=== PATIENT | female | born 1950 | race Caucasian/White ===

== ENCOUNTER 2016-06-03 12:16 | Outpatient (CLI) | payer OTHER ==
[2013-12-13 11:07] VITALS: BP 114/49
[2016-06-03 12:37] LABS: BASOPHILS % 0.8 (0.0-1.5); EOSINOPHILS % 1.8 % (0.0-6.8); MEAN CORPUSCULAR HEMOGLOBIN 31.6 pg (28.0-34.0); MEAN CORPUSCULAR VOLUME 96.9 fl (80.0-100.0); MONOCYTES % 4.7 % (0.0-11.0); NEUTROPHILS # 3.7 # k/uL (1.4-7.7)
[2016-06-03 13:12] LABS: eGFR (African) > 60; eGFR (Non-African) > 60
[2016-06-03 23:20] LABS: IRON SERUM 122 ug/dL (37-145); VITAMIN D, 25-HYDROXY 47 ng/mL (30-100)
== END 2016-06-03 12:17 ==
LOC: LAB 12:16
PROVIDERS: ATTEND Physician Assistant
DX: R53.83 Other fatigue (principal)
CPT/HCPCS: 36415; 80053; 82306; 82607; 83540; 84439; 84443; 84481; 85025

== ENCOUNTER 2016-06-05 10:37 | Outpatient (CLI) | payer OTHER ==
[2013-12-13 11:07] VITALS: BP 114/49
== END 2016-06-05 10:40 ==
LOC: LAB 10:37
PROVIDERS: ATTEND Family Medicine
DX: R73.9 Hyperglycemia, unspecified (principal)
CPT/HCPCS: 36415; 83036

== ENCOUNTER 2016-07-03 14:35 | Outpatient (CLI) | payer OTHER ==
[2013-12-13 11:07] VITALS: BP 114/49
--- NOTE | 2016-07-04 14:44 | OP Clinic Progress Note ---
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 Recently , she had this happen. She felt this more recent episode a month or so ago was "really bad." She felt like her head was blocked up and almost wanting to explode. She has had reduced hearing in the right ear. There is more pressure in the right ear. She used some antihistamines and decongestants and topical Flonase nasal spray. With time and/or with the medications, she is at least moderately improved. Appropriately, wax was noted in the left ear on her examination with Dr. Stewart. Under the microscope, I debrided and cleaned a tiny amount of wax from the right ear and a moderately significant amount from the left ear. I could see both eardrums very well. Neither ear has fluid behind the eardrum. The high arched ear canal somewhat blocks off the anterior aspect of the right ear examination. The right eardrum is somewhat stiffened and retracted at the malleus. Clearly, overall, Nandini Gardner also has a very long narrow face and a high- arched palate. Frequently, these are associated with at least mild degrees of Eustachian tube dysfunctions and are felt to be somewhat elongated and narrow. PLAN: I offered several different treatment options including taking a short course of taking steroids and of course taking some antibiotics, doing a small myringotomy, or placing a tube. All these options were not agreeable with Nadnini. She has felt like she is improving in some degree and does not want to take medications or do anything physical regarding this issue. Diagrams were used to go over these issues and I think she has a better understanding of them. She wanted to know about cerumen but I do not think I would really recommend anything for her right now. It has never been a problem before in her life and if it resurfaces again after several decades, I think she simply ought to have it cleaned it. She may return on a p.r.n. basis if the symptoms get to a level of being bothersome enough that she would like to do something about them. cc: Dr. Charity ALTMAN
== END 2016-07-03 14:36 ==
LOC: ENT 14:35
PROVIDERS: ATTEND Otolaryngology
DX: H69.91 Unspecified Eustachian tube disorder, right ear (principal)
CPT/HCPCS: G0463